=== PATIENT | male | born 1950 | race Caucasian/White ===

== ENCOUNTER → 2020-04-10 | Outpatient (CLI) | payer OTHER ==
[~2020-04-10] MED LIST: ACCUPRIL40 MG PO; ASPIR 8181 M1 PO; CARVEDILOL12.5 MG PO; FOLIC ACID0.8 MG PO; GLIPIZIDE ER10 MG PO; METFORMIN HCL1000 MG PO; NOVOLOG100 UNIT/1 SUBQ; ROSUVASTATIN CA20 MG PO; SULFASALAZINE500 M5 PO; TAMSULOSIN HCL0.4 MG PO
== END ==
LOC: LAB 11:10
PROVIDERS: ATTEND Student in an Organized Health Care Education/Training Program
DX: Z01.812 Encounter for preprocedural laboratory examination (principal); Z11.59 Encounter for screening for other viral diseases

== ENCOUNTER 2020-04-13 06:18 | Day surgery (SDC) | payer OTHER ==
[~2020-04-13] VITALS: Ht 175.3 cm; Wt 90.7 kg
[2020-04-13 07:34] VITALS: BP 136/72
--- NOTE | 2020-04-17 06:16 | O ---
[facility] [place] [address] OPERATIVE REPORT Name: WON MCCARTY Room #: DEP [facility]#: [id number] Admission: 04/13/20 Attend Phys: Titus Anaya MD Discharge: 04/13/20 Date of : 48 Report #: [id number] THIS REPORT FOR: cc: Joaquín Mejia Paul DO White, William L. MD ~ CC: Dr. Alva Galindo DATE OF SERVICE: 04/13/2020 SURGEON: Titus Anaya MD SEED CLEANING MANAGER: None. PREOPERATIVE DIAGNOSIS: Bilateral lower lid ectropion. POSTOPERATIVE DIAGNOSIS: Bilateral lower lid ectropion. OPERATION PERFORMED: Bilateral lower lid ectropion repair. ANESTHESIA: Local with IV sedation. COMPLICATIONS: None. INDICATIONS FOR PROCEDURE: This patient has bilateral acquired lower lid ectropion with chronic tearing, keratopathy and discharge. The current procedures are undertaken in order to improve the patient's visual function, lacrimal outflow, and level of comfort. Informed consent was obtained to include but not limit to the risk of loss of vision, bleeding, infection, scarring, failure to improve the problem and need for further surgery. DESCRIPTION OF OPERATION: The patient was taken to the operating room where 2% Xylocaine with epinephrine mixed with equal parts of 0.75% Marcaine with Wydase was administered transcutaneously and transconjunctivally to each lower lid and lateral canthal area. The patient was then prepped and draped in the usual sterile fashion. A Dayday clamp was then used to clamp the left lateral canthus following which a sharp canthotomy and cantholysis were performed. The tarsal strip was prepared laterally, removing the lash bearing portion of the redundant lid margin and the redundant tarsal plate. Hemostasis was achieved with a monopolar cautery, as it was throughout the case. The tarsal strip was then secured to the internal portion of the lateral orbital tubercle with two [facility] [address] [place] [address] OPERATIVE REPORT Name: WON MCCARTY Room #: [facility].#: [id number] Admission: 04/13/20 Attend Phys: Titus Anaya MD Discharge: 04/13/20 Date of : 48 Report #: [id number] interrupted 5-0 Prolene sutures. The lateral canthal angle was sharply reformed as the subcutaneous structures and the skin were closed with multiple interrupted 6-0 plain gut sutures. Attention was then turned to the right side where the same procedure was performed. The wounds were cleaned and dressed with ophthalmic antibiotic ointment. The patient was then transported to the recovery area, having tolerated the procedure well with no anesthetic or operative complications being noted. <ELECTRONICALLY SIGNED> By: Titus Anaya MD 04/17/20 [id number] Titus Anaya MD /katherine
== END 2020-04-13 09:20 | disposition home or self-care (01) ==
LOC: OR 06:18 → TBA 07:38 → OR 09:06
PROVIDERS: ATTEND Ophthalmology
DX: H02.105 Unspecified ectropion of left lower eyelid (principal); H02.102 Unspecified ectropion of right lower eyelid; I10 Essential (primary) hypertension; E11.9 Type 2 diabetes mellitus without complications; I25.10 Atherosclerotic heart disease of native coronary artery without angina pectoris; E78.00 Pure hypercholesterolemia, unspecified; N40.0 Benign prostatic hyperplasia without lower urinary tract symptoms; Z98.890 Other specified postprocedural states; Z79.899 Other long term (current) drug therapy; Z79.4 Long term (current) use of insulin; Z87.891 Personal history of nicotine dependence; Z87.19 Personal history of other diseases of the digestive system; Z96.651 Presence of right artificial knee joint
CPT/HCPCS: 50010; 50101; 50386; 50398; 51636; 56527; 56531; 62110; 62850; 70005

== ENCOUNTER 2020-05-11 06:04 | Day surgery (SDC) | payer OTHER ==
[~2020-05-11] VITALS: Ht 175.3 cm; Wt 90.7 kg
--- NOTE | ~2020-05-11 | O ---
[facility] [place] [address] OPERATIVE REPORT Name: WON MCCARTY Room #: 150-5 [facility]..#: [id number] Admission: 05/11/20 Attend Phys: Titus Anaya MD Discharge: Date of : 48 Report #: [id number] THIS REPORT FOR: cc: Sandor Rosa Herbert E. DO White, William L. MD ~ CC: DARIEN Arora DATE OF SERVICE: 05/11/2020 CHIEF OPERATOR REFORMER: None. PREOPERATIVE DIAGNOSIS: Bilateral upper lid ptosis with superior visual field defects both eyes. POSTOPERATIVE DIAGNOSIS: Bilateral upper lid ptosis with superior visual field defects both eyes. OPERATION PERFORMED: Bilateral upper lid functional ptosis repair. CHIEF OPERATOR REFORMER: None. ANESTHESIA: Local with IV sedation. COMPLICATIONS: None. INDICATIONS FOR PROCEDURE: This patient has bilateral upper lid ptosis with superior visual field loss both eyes. Visual field testing demonstrates dense superior visual defects. Retesting with the upper lid elevated shows an improvement in visual field loss of over 30% and in excess of 12 degrees. The current procedure is being undertaken in order to improve the patient's visual function. Informed consent was obtained to include but not limited to the risk of loss of vision, bleeding, infection, scarring, failure to improve the problem and need for further surgery, such as adjustment of lid height. DESCRIPTION OF PROCEDURE: The patient was taken to the operating room, where 2% Xylocaine with epinephrine mixed with equal parts of 0.75% Marcaine with Wydase was administered transcutaneously to each upper lid. The patient was then prepped and draped in the usual sterile fashion. [address] [address] OPERATIVE REPORT Name: WON MCCARTY Room #: 150-5 [facility].#: [id number] Admission: 05/11/20 Attend Phys: Titus Anaya MD Discharge: Date of : 48 Report #: [id number] An upper lid crease incision was then made bilaterally and the dissection was carried down until the orbital septum was identified. The orbital septum was then cleared and the preaponeurotic fat identified. The levator aponeurosis was then disinserted from the anterior surface of the tarsal plate and dissected free in the avascular So's muscle plane. The aponeurosis was then advanced and reattached to the anterior surface of the tarsal plate with interrupted mattress 6-0 Novafil sutures on each side, adjusting for height and contour. The redundant aponeurosis was then amputated. The incision was then closed with multiple interrupted 6-0 chromic sutures that were used to recreate an upper lid crease. The skin was closed with a running 6-0 plain gut suture. The wound was then cleaned and dressed with ophthalmic antibiotic ointment followed by a Telfa pad. The patient was transported to the recovery area, having tolerated the procedure well with no anesthesia or operative complications being noted. By: [id number] Titus Anaya MD /nt
[~2020-05-11 06:04] MED LIST changes: +ASPIRIN EC81 M1 PO; +QUINAPRIL-HCTZ1 EAC1 PO
[2020-05-11 07:58] VITALS: BP 132/71
== END 2020-05-11 08:55 | disposition home or self-care (01) ==
LOC: OR 06:04 → TBA 06:05 → OR 08:13
PROVIDERS: ATTEND Ophthalmology
DX: H02.413 Mechanical ptosis of bilateral eyelids (principal); H53.462 Homonymous bilateral field defects, left side; H53.461 Homonymous bilateral field defects, right side; G47.30 Sleep apnea, unspecified; I10 Essential (primary) hypertension; E78.00 Pure hypercholesterolemia, unspecified; I25.10 Atherosclerotic heart disease of native coronary artery without angina pectoris; E11.9 Type 2 diabetes mellitus without complications; N40.0 Benign prostatic hyperplasia without lower urinary tract symptoms; Z98.890 Other specified postprocedural states; Z79.899 Other long term (current) drug therapy; Z79.4 Long term (current) use of insulin; Z87.19 Personal history of other diseases of the digestive system; Z87.891 Personal history of nicotine dependence; Z96.651 Presence of right artificial knee joint; Z88.8 Allergy status to other drugs, medicaments and biological substances; Z79.82 Long term (current) use of aspirin; Z20.828 Contact with and (suspected) exposure to other viral communicable diseases
CPT/HCPCS: 50010; 50101; 50386; 50398; 51636; 56528; 56531; 62110; 62850; 70005